=== PATIENT | female | born 1940 | race Caucasian/White ===

== ENCOUNTER → 2017-03-25 | Outpatient (CLI) | payer OTHER, BC ==
--- NOTE | 2017-03-25 17:16 | MAMMOGRAPHY REPORT ---
BILATERAL DIGITAL SCREENING MAMMOGRAM TOMOSYNTHESIS WITH CAD: 03/25/2017 CLINICAL HISTORY: Asymptomatic. Personal history of breast cancer. TECHNIQUE: Bilateral breast tomosynthesis in addition to standard 2D mammography was performed. Curre nt study was also evaluated with a Computer Aided Detection (CAD) system. COMPARISON: Comparison is made to exams dated: 03/20/2016 mammogram, 03/16/2015 mammogram, 03/14/2014 mamm ogram, 03/08/2013 mammogram, 02/18/2012 mammogram, and 02/13/2011 mammogram - [facility] . BREAST COMPOSITION: There are scattered areas of fibroglandular density in both breasts. FINDINGS: There are possible new microcalcifications in a linear distribution in the upper outer mid dle one third of the right breast, for which additional spot magnification views are recommended. Th ere is an asymmetry in the superior middle one third of the left breast on the MLO view that effaces on the tomosynthesis images, and most likely represents normal fibroglandular tissue. However, addit ional spot compression tomosynthesis views and possible ultrasound are recommended in the left breast . A linear scar marker overlies the upper outer posterior right breast, denoting an area of prior surge ry. Surgical clips remain in place. There are moderate vascular calcifications bilaterally. No othe r suspicious mass, architectural distortion or cluster of microcalcifications is seen. IMPRESSION: ACR BI-RADS CATEGORY 0: INCOMPLETE EVALUATION: NEED ADDITIONAL IMAGING EVALUATION The possible new microcalcifications in a linear distribution in the upper outer right breast, and as ymmetry in the superior left breast need additional evaluation. The patient will be called to schedule an appointment. Approximately 10% of breast cancers are not detected with mammography. A negative mammographic report should not delay biopsy if a clinically suggestive mass is present. Yolanda Laureano M.D. ay/:03/25/2017 15:45:18 Animal Ecologist: Pushpa Robb, [facility] letter sent: Addl Imaging 0 BI-RADS Code: ACR BI-RADS Category 0: Incomplete Evaluation: Need Additional Imaging Evaluation
== END | disposition home or self-care (01) ==
LOC: C.MAMM 13:35
PROVIDERS: ATTEND Family Medicine
DX: Z12.31 Encounter for screening mammogram for malignant neoplasm of breast (principal); Z85.3 Personal history of malignant neoplasm of breast; N64.9 Disorder of breast, unspecified

== ENCOUNTER → 2017-04-02 | Outpatient (CLI) | payer OTHER, BC ==
--- NOTE | 2017-04-03 07:44 | MAMMOGRAPHY REPORT ---
BILATERAL DIGITAL DIAGNOSTIC MAMMOGRAM TOMOSYNTHESIS: 04/02/2017 CLINICAL HISTORY: Callback from screening mammogram for left breast asymmetry and right breast calcif ications. TECHNIQUE: Breast tomosynthesis in addition to standard 2D mammography was performed. Spot magnific ation right cc and ML views and spot compression left CC and MLO 2-D and tomosynthesis images were ob tained. COMPARISON: Comparison is made to exams dated: 03/25/2017 mammogram, 03/20/2016 mammogram, 03/16/2015 jadyn mogram, 03/14/2014 mammogram, 09/26/2013 mammogram, and 03/23/2013 mammogram - [facility]. BREAST COMPOSITION: There are scattered areas of fibroglandular density in both breasts. FINDINGS: The previously described asymmetry within the left superior breast on the MLO view effaces on the additional spot compression views and has the appearance of normal fibroglandular tissue on t he tomosynthesis images. No suspicious mass, architectural distortion, or other suspicious finding i s seen in this region on the additional images. Spot magnification views of the right breast demonstrate benign vascular calcifications scattered wit hin the right breast. There is a small 7 mm group of calcifications in the right upper outer quadran t middle depth which appear to be contiguous with vascular calcifications, best seen on the cc tomosy nthesis images from the screening exam, and therefore could represent developing vascular calcificati ons. The calcifications are probably benign and short interval follow-up is recommended to confirm s tability. IMPRESSION: ACR-BI-RADS CATEGORY 3: PROBABLY BENIGN 1. Left superior breast asymmetry effaces on the additional views, and is benign and compatible with normal fibroglandular tissue. 2. Grouped calcifications in the right upper outer quadrant are probably benign and may represent de veloping vascular calcifications, as seen elsewhere in the right breast. Recommend follow-up diagnos tic tomosynthesis mammograms in 6 months to confirm stability on spot magnification views. The patient has been verbally notified of the results. Approximately 10% of breast cancers are not detected with mammography. A negative mammographic report should not delay biopsy if a clinically suggestive mass is present. Nadia Li M.D. /:04/02/2017 17:02:14 Power Washer: Nathalie CORONADO(Olayinka)(M), [facility] letter sent: Follow Up Recommended 3 BI-RADS Code: ACR-BI-RADS Category 3: Probably Benign
== END | disposition home or self-care (01) ==
LOC: C.MAMM 09:00
PROVIDERS: ATTEND Family Medicine
DX: N64.89 Other specified disorders of breast (principal); R92.1 Mammographic calcification found on diagnostic imaging of breast

== ENCOUNTER → 2017-05-27 | Outpatient (CLI) | payer OTHER, BC ==
[2017-05-27 09:55] LABS: BLOOD UREA NITROGEN 16 mg/dl (7-18); BUN/CREATININE RATIO 17.2 (10-20); CALCIUM 9.2 mg/dl (8.5-10.1); CARBON DIOXIDE 28 mmol/L (21-32); CHLORIDE 105 mmol/L (98-107); CREATININE 0.94 mg/dl (0.60-1.20); GLUCOSE 86 mg/dl (70-99); POTASSIUM 4.5 mmol/L (3.5-5.1); SODIUM 141 mmol/L (136-145)
== END | disposition home or self-care (01) ==
LOC: C.LAB 07:51
PROVIDERS: ATTEND Family Medicine
DX: I10 Essential (primary) hypertension (principal)

== ENCOUNTER → 2017-05-28 | Outpatient (CLI) | payer OTHER, BC | END | disposition home or self-care (01) | LOC: C.MAMM 12:23 | PROVIDERS: ATTEND Family Medicine | DX: Z13.820 Encounter for screening for osteoporosis (principal); Z78.0 Asymptomatic menopausal state ==

== ENCOUNTER → 2017-09-24 | Outpatient (CLI) | payer OTHER, BC ==
--- NOTE | 2017-09-24 15:16 | MAMMOGRAPHY REPORT ---
UNILATERAL RIGHT DIGITAL DIAGNOSTIC MAMMOGRAM TOMOSYNTHESIS WITH CAD: 09/24/2017 CLINICAL HISTORY: Short interval follow-up of right breast calcifications. TECHNIQUE: Breast tomosynthesis in addition to standard 2D mammography was performed. Current study was also evaluated with a Computer Aided Detection (CAD) system. Right CC and MLO to DN tomosynthesi s images and spot magnification right cc and ML views were obtained. COMPARISON: Comparison is made to exams dated: 04/02/2017 mammogram, 03/25/2017 mammogram, 03/20/2016 ma mmogram, 03/16/2015 mammogram, 03/14/2014 mammogram, and 09/26/2013 mammogram - [facility]. BREAST COMPOSITION: There are scattered areas of fibroglandular density in the right breast. FINDINGS: Spot magnification views of the right breast again demonstrate grouped coarse heterogeneous calcifications within the right upper outer quadrant anterior to the surgical bed. The focal group measures approximately 8 mm, with a few coarse benign-appearing calcifications seen slightly anterior and posterior to the calcifications. The calcifications are not significantly changed compared to t he prior March 2017 exam when accounting for slight differences in positioning. The calcificatio ns are adjacent to vascular calcifications although these calcifications are not outlining a vessel a nd therefore do not clearly represent vascular calcifications. The calcifications are indeterminant and stereotactic biopsy is recommended for further evaluation, especially given the personal history of breast cancer. The remainder of the right breast is stable mammographically compared to prior exams, without suspici ous masses, calcifications, or areas of architectural distortion noted. There are stable post surgic al changes in the right upper outer quadrant from prior lumpectomy. IMPRESSION: ACR BI-RADS CATEGORY 4: SUSPICIOUS Grouped calcifications within the right upper outer quadrant are not significantly changed compared t o the March 2017 exam, although they do not clearly represent vascular calcifications and are the refore indeterminate. Recommend stereotactic biopsy for further evaluation, especially given the per lisa history of breast cancer. A phone call was made to the physician's office to confirm faxed results were received. The patient has been verbally notified of the results. She tentatively scheduled the biopsy before leaving the [facility]. Approximately 10% of breast cancers are not detected with mammography. A negative mammographic report should not delay biopsy if a clinically suggestive mass is present. Nadia Li M.D. /:09/24/2017 10:18:57 Mobile Architect: Pushpa Robb, [facility] letter sent: Abnormal 4/5 BI-RADS Code: ACR BI-RADS Category 4: Suspicious
== END | disposition home or self-care (01) ==
LOC: C.MAMM 08:54
PROVIDERS: ATTEND Family Medicine
DX: R92.0 Mammographic microcalcification found on diagnostic imaging of breast (principal)

== ENCOUNTER → 2017-10-08 | Outpatient (CLI) | payer OTHER, BC ==
--- NOTE | 2017-10-08 13:23 | Discharge Instructions ---
Discharge Instructions Procedure Procedure Date: Oct 08, 2017. Reason for visit: Right Calcifications. Discharge Discharge Date: Oct 08, 2017. Discharge Diagnosis: status post breast biopsy Instructions Activity Recommendations: Additional Limitations (see below) Return to School/Work: no limitations Recommended Home Diet: No Limitations Provider Instructions: ACTIVITY RECOMMENDATIONS: * No lifting, pushing, pulling or exercising the affected side for three days. RETURN TO SCHOOL/WORK: * You may return to work/school after the procedure, but do not perform any strenuous activities for 24 to 48 hours. MEDICATIONS: * Tylenol (two 325 mg) every four to six hours if needed for mild pain (if not allergic to Tylenol). DIET: * Resume previous diet. SPECIAL CARE INSTRUCTIONS: * Keep biopsy site dry for 24 hours. May shower after 24 hours, but do not soak (bathe) incision. * May remove Tegaderm (plastic patch) tomorrow AFTER showering. * Leave the steri-strips on for one week. Allow the steri-strips to fall off by themselves. If not off after one week, you may remove them. You may place a Bandaid crosswise over the strips, if desired. * Apply ice 10 minutes on and 10 minutes off as needed. * Wear a bra at bedtime to sleep more comfortably for 2-3 days. * Your referring physician should have the results after approximately 5 to 7 business days. * Call for unusual bleeding, fever, drainage, etc or if you have any questions call during normal business hours or after hours call Dr Li, . FOLLOW UP VISIT: Follow-up with Referring Physician as scheduled. Allergies Coded Allergies: No Known Allergies (Verified Allergy, Unknown, 07/08/05) Deni Moreno Recommendations: Call your doctor if: * Temperature above 101 degrees * Pain not relieved by pain medicine ordered * There is increased drainage or redness from any incision * You have any unanswered questions or concerns. Your Doctors Instructions noted above were prepared by provider Nadia Li. Patient Signature Section: Patient Instructions Signature Page Magaly Peck Patient (or Guardian) Signature/Date: I have read and understand the instructions given to me by my caregivers. Caregiver/RN/Doctor Signature/Date: The above-named patient and/or guardian has received patient instructions on this date. + Original Patient Signature Page (only) stays with chart. Please make copy for patient.
--- NOTE | 2017-10-09 07:20 | MAMMOGRAPHY REPORT ---
THIS REPORT HAS BEEN AMENDED. STEREOTACTIC GUIDED BIOPSY RIGHT BREAST: 10/08/2017 CLINICAL HISTORY: Indeterminate calcifications in the right upper outer quadrant. PATIENT CONSENT: The procedure, risks, benefits, and alternatives of stereotactic biopsy with clip pl acement were discussed with the patient, and verbal and written consent was obtained. A timeout was performed immediately prior to the procedure. PROCEDURE DESCRIPTION: With stereotactic guidance, aseptic technique, and lidocaine as a local anesth etic (1% lidocaine to anesthetize the skin and 1% lidocaine with epinephrine to anesthetize the deepe r tissues), the calcifications of concern in the right upper outer quadrant were sampled multiple jess es with a 9-gauge vacuum-assisted biopsy needle ([employer]). The path of approach was lateral. Th e specimen radiograph demonstrates calcifications to be present in the samples. A metallic marker cl ip was placed at the biopsy site. This was confirmed on postprocedure mammograms. Direct pressure w as applied at the biopsy site and hemostasis was readily achieved. The patient tolerated the procedu re without complication. She was given wound care instructions. COMPARISON: Comparison is made to exams dated: 09/24/2017 mammogram, 04/02/2017 mammogram, 03/25/2017 m ammogram, 03/20/2016 mammogram, 03/16/2015 mammogram, and 03/14/2014 mammogram - [facility]. IMPRESSION: STEREOTACTIC GUIDED BIOPSY Stereotactic biopsy of indeterminate calcifications in the right upper outer quadrant, with clip plac ement. The patient will receive pathology results from her referring provider. Nadia Li M.D. ah/:10/08/2017 13:27:00 Court Recorder: Nathalie CORONADO(Olayinka)(J Carlos), [facility] AMENDMENT: 10/14/2017 Nadia Li M.D. Pathology results from stereotactic biopsy of right breast calcifications were reviewed on 10/14/2017. 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 The pathology is malignant and con cordant with the imaging appearance. Recommend surgical consultation. Given that the patient has iyer d a prior right breast lumpectomy, if breast conserving therapy is being considered, would also recom mend preoperative bilateral breast MRI for further evaluation.
--- NOTE | 2017-10-09 07:23 | MAMMOGRAPHY REPORT ---
UNILATERAL RIGHT DIGITAL DIAGNOSTIC MAMMOGRAM: 10/08/2017 CLINICAL HISTORY: Status post right breast stereotactic biopsy. TECHNIQUE: Postprocedural right CC and ML views were obtained. COMPARISON: Comparison is made to exams dated: 09/24/2017 mammogram, 04/02/2017 mammogram, 03/25/2017 m ammogram, 03/20/2016 mammogram, 03/16/2015 mammogram, and 03/14/2014 mammogram - [facility] er. BREAST COMPOSITION: There are scattered areas of fibroglandular density in the right breast. FINDINGS: A new biopsy marker clip is seen at the site of the biopsied calcifications in the right la teral breast at approximately 9 to 10:00. No significant postbiopsy hematoma is seen. IMPRESSION: POST PROCEDURE IMAGING FOR MARKER PLACEMENT New biopsy marker clip status post right breast biopsy. Pathology results are pending. Approximately 10% of breast cancers are not detected with mammography. A negative mammographic report should not delay biopsy if a clinically suggestive mass is present. Nadia Li M.D. ah/:10/08/2017 13:35:50 Concrete Block Molder: Nathalie CORONADO(Olayinka)(J Carlos), [facility] BI-RADS Code: Post Procedure Imaging For Marker Placement
== END | disposition home or self-care (01) ==
LOC: C.MAMM 12:28
PROVIDERS: ATTEND Family Medicine
DX: R92.1 Mammographic calcification found on diagnostic imaging of breast (principal); C50.411 Malignant neoplasm of upper-outer quadrant of right female breast